=== PATIENT | female | born 1990 | race Caucasian/White ===

== ENCOUNTER 2021-01-25 11:10 | Inpatient (IN) ==
[2021-01-25] MEDS ORDERED: BUTORPHANOL TARTRATE 2 MG/ML VIAL IV PRN ×2 (11:41)
[2021-01-25] MEDS ORDERED: RINGER'S SOLUTION,LACTATED 1,000 ML IV ONE (11:41)
[2021-01-25] MEDS ORDERED: MISOPROSTOL 100 MCG TABLET VG PRN (11:41)
[2021-01-25] MEDS ORDERED: ONDANSETRON 4 MG TAB.RAPDIS PO PRN (11:41)
[2021-01-25] MEDS ORDERED: OXYTOCIN/0.9 % SODIUM CHLORIDE 30 UNITS/500 ML BAG IV ONE (11:41)
[2021-01-25] MEDS ORDERED: LIDOCAINE HCL 50 ML VIAL PERI PRN (11:41)
[2021-01-25] MEDS: RINGER'S SOLUTION,LACTATED 1,000 ML IV PRN ×2 (12:07→17:54)
[2021-01-25] MEDS ORDERED: MAGNESIUM SULFATE IN WATER 50 ML IV ONE (12:48)
[2021-01-25] MEDS: MAGNESIUM SULFATE IN WATER 1,000 ML IV SCH (13:26)
[2021-01-25] MEDS ORDERED: LABETALOL HCL 5 MG/ML VIAL IV STA ×2 (13:45→15:13)
[2021-01-25] MEDS ORDERED: ONDANSETRON HCL/PF 2 MG/ML VIAL IV PRN (16:10)
[2021-01-25] MEDS ORDERED: BUPIVACAINE HCL/0.9 % NACL/PF 250 ML EP PRN (16:10)
[2021-01-25] MEDS ORDERED: NALOXONE HCL 1 MG/1 ML SYRG IV PRN (16:10)
[2021-01-25] MEDS ORDERED: fentaNYL CITRATE/PF 50 MCG/ML AMPUL IT SCH (16:15)
--- NOTE | 2021-01-25 16:52 | HP ---
Chief Complaint - Chief Complaint Date of Service: 01/25/21 Time of Service: 16:43 Chief Complaint: Medical induction History of Present Illness: 30 year old at 36w 6d who presented to the office today for a routine obstetrical visit. She was found to have elevated BPs in the severe range and thus she was sent to L&D for induction. She denied ctx, vb or lof. Fetus active. She also denied DUMONT, visual changes or abdominal pain. Medical History (Last Reviewed 01/25/21 @ 16:45 by Belkis Stone MD) Chronic hypertension (Acute) BP severe to mild range. Asymptomatic. Scheduled for delivery after 38 weeks NST reactive YOLIS q Pre-eclampsia labs today due to two severe range BPs Anxiety Depression Concussion Spontaneous Onset Date: ~02/2020 Surgical History: Surgical History (Last Reviewed 01/25/21 @ 16:45 by Belkis Stone MD) No pertinent past surgical history Family History: Family History (Last Reviewed 01/25/21 @ 16:45 by Belkis Stone MD) Mother Breast cancer, Onset Age: 40 Father Myocardial infarction, Onset Age: 40 bypass surgery Social History: (Last Reviewed 01/25/21 @ 16:45 by Belkis Stone MD) Social History: Marital status: household members: spouse current occupational status: employed current occupation: customer service current occupational exposures/hazards: No Highest level of school completed/degree received: some college, no degree Service: No Tobacco: Smoking Status: Never smoker Alcohol: details: none since +UPT Substance Use: substance use type: does not use Dietary Habits: caffeine: No Review Of Systems (GEN) - Review of Systems Generalized/Overall Review: Present: No Symptoms Reported Neurological: Present: No Symptoms Reported Skin: Present: No Symptoms Reported Misc: All systems neg except as marked Immunizations: IMMUNIZATION HX Immunizations Up to Date Yes Allergies/Adverse Reactions: Allergies Allergy/AdvReac Type Severity Reaction Status Date / Time No Known Allergies Allergy Verified 01/25/21 11:47 Home Medications: HOME MEDICATIONS prenat.vits,tk,elv-[id number]-pxgwx 1 tab PO DAILY 02/20/20 [Last Taken Unknown] sertraline 100 mg tablet 100 mg PO DAILY #30 tab 07/22/20 [Last Taken 01/24/21] Exam - Exam Vital Signs: Vital Signs - Last Taken Temp 37.2 C 01/25/21 12:00 Pulse 96 01/25/21 14:15 Resp 16 01/25/21 12:00 BP 161/103 H 01/25/21 13:53 Pulse Ox 97 01/25/21 12:00 Constitutional: Present: Alert, Oriented x3, Cooperative ENT Exam: Present: hearing grossly normal Eye Exam: bilateral eye: normal inspection Neck: Present: normal inspection Back Exam: Present: normal inspection Respiratory: Present: lungs clear, normal breath sounds Cardiovascular/Chest: Present: regular rate, rhythm Abdomen: Present: soft, nontender, nondistended /Rectal: Present: Other - 4/60/-2 AROM for clear fluid Extremity: Present: non-tender, no pedal edema Skin Exam: Present: normal color, warm/dry, no cyanosis Neurologic: Present: alert, normal mood/affect, oriented x 3 Appearance: Present: appropriate appearance, appropriate insight, neat, no memory impairment Eye contact: Present: cooperative, good eye contact, normal speech Thoughts: Present: normal thought pattern Assessment/Plan - Narrative Narrative: 30 year old at 36w 6d 1. Proceed with IOL due to superimposed pre-eclampsia with severe features. The patient is asymptomatic and her pre-eclampsia labs are normal. Magnesium was started for seizure prophylaxis. Two doses of labetalol have been given: 20 mg followed by 40 mg IV. 2. GBS negative: prophylaxis not indicated 3. Anxiety with depression: stable on sertraline - Assessment/Plan (1) 36 weeks gestation of Problem: Acute (2) Depression with anxiety Problem: Acute (3) Normal Pap smear Problem: Acute (4) Pre-eclampsia superimposed on chronic hypertension Problem: Acute
--- NOTE | 2021-01-25 17:25 | ANES ---
Anesthesia Pre Procedure Eval Vitals/Labs: Last Vital Signs Temp 37.2 C 01/25/21 12:00 Pulse 96 01/25/21 14:15 Resp 16 01/25/21 12:00 BP 161/103 H 01/25/21 13:53 Pulse Ox 97 01/25/21 12:00 HOME MEDICATIONS prenat.vits,tk,xij-uhll-fszdi 1 tab PO DAILY 02/20/20 [Last Taken Unknown] sertraline 100 mg tablet 100 mg PO DAILY #30 tab 07/22/20 [Last Taken 01/24/21] Allergies/Adverse Reactions: Allergies Allergy/AdvReac Type Severity Reaction Status Date / Time No Known Allergies Allergy Verified 01/25/21 11:47 - Planned Procedure Planned Procedure: MEDICAL INDUCTION Medication List Reviewed:: Yes Allergies Verified: Yes Medical History (Last Reviewed 01/25/21 @ 17:24 by Jose R Mosher CRNA) Chronic hypertension (Acute) BP severe to mild range. Asymptomatic. Scheduled for delivery after 38 weeks NST reactive YOLIS q Pre-eclampsia labs today due to two severe range BPs Anxiety Depression Concussion Spontaneous Onset Date: ~02/2020 Surgical History (Last Reviewed 01/25/21 @ 17:24 by Jose R Mosher CRNA) No pertinent past surgical history Family History (Last Reviewed 01/25/21 @ 17:24 by Jose R Mosher CRNA) Mother Breast cancer, Onset Age: 40 Father Myocardial infarction, Onset Age: 40 bypass surgery - Family Anesthesia History Family History:: no untoward family reactions to anesthesia - Airway/Neck/Teeth Within Normal Limits:: Yes Teeth Condition: intact Neck Exam: full range of motion Mallampatti Score: 2 Thyromental (T-M) distance: > 6 cm Mandibulo Hyoid distance: > 3 cm - Respiratory Respiratory Physical: lungs clear Smoking Status: Never smoker Sleep Apnea currently treated: No Sleep Apnea by current assessment: No - Cardiovascular Cardiac History: hypertension Tolerate Activity: Good Heart Sounds: S1 & S2, Regular - Gastrointestinal NPO since: 1200 - Anesthesia Assessment and Plan ASA Class: PS, II, E Anesthesia Type Plan: Epidural Planned difficult intubation/equipment available: No
--- NOTE | 2021-01-25 17:25 | ANES ---
Post Anesthesia Assessment - Vital Signs Vitals: Last Vital Signs Temp 37.2 C 01/25/21 12:00 Pulse 96 01/25/21 14:15 Resp 16 01/25/21 12:00 BP 161/103 H 01/25/21 13:53 Pulse Ox 97 01/25/21 12:00 Airway Patency: Normal - Mental Status Level Of Consciousness: Awake - Pain Level Pain Score: 1 - N/V Assessment Nausea/Vomiting Presence: None Dehydration:: No
--- NOTE | 2021-01-25 17:25 | ANES ---
Post Anesthesia Discharge - Transfer of Care Transfer of Care handoff given to nurse: Yes - Anesthesia Post Op Note Anesthesia Post Op Note: Care transferred to OB RN
--- NOTE | 2021-01-25 17:27 | ANES ---
Anesthesia Procedure Note Procedure Note: ANESTHESIA PROCEDURE NOTE Date of Procedure: 01/25/2021 Time of procedure: 1650. Performed by: Michele Mosher CRNA Manager Personal: None. Preprocedure diagnosis: Active labor. Post procedure diagnosis: Same. Procedure: Insertion of labor epidural. Indications: The patient is a 30-year-old prima para female in active labor requesting labor epidural for pain management. Findings: See below. Details of the procedure: The patient was placed in a sitting position. Back was prepped with DuraPrep. Patient was then draped in a sterile fashion. Lidocaine 1% was infiltrated to the skin and subcutaneous tissues at the level of the L3 4 interspace. The epidural space was identified using a 18-gauge Tuohy needle with [id number] technique. 20 mcg fentanyl was given intrathecally using a 27 ga. spinal needle. Epidural catheter was inserted without difficulty. Negative test dose was elicited using 5 mL of 1.5% preservative-free lidocaine plus epinephrine 1 200,000. The epidural catheter was then taped and secured in place. EBL: Minimal. Fluids: N/A. Specimen: N/A. Post procedure condition: The patient tolerated the procedure well. No complications were noted. Thank you for this consultation. Bolton CRNA
[2021-01-26] MEDS: RINGER'S SOLUTION,LACTATED 1,000 ML IV PRN (01:55)
[2021-01-26] MEDS ORDERED: MISOPROSTOL 200 MCG TABLET RC ONE (02:20)
--- NOTE | 2021-01-26 02:27 | OR ---
Operative Report - Dictated Report Narrative: Date of delivery: 01/26/2021 Time of delivery: 201 Gender: male weight: 3509 grams APGARS: 8 Procedure: Description of the procedure: The patient is a 30 year old now at 37w 0d who underwent a medical induction of labor due to SIP. She progressed to complete dilation. She delivered a viable male in direct OA presentation. A vacuum delivery was attempted due to prolonged second stage and maternal exhaustion but suction was inadequate due to hair on the baby and thus it was abandoned after two pop offs. Cord clamping was delayed for 60 seconds due to vigorous . A second degree perineal laceration was repaired with 3-0 rapide. The placenta was delivered by expression, intact, and without difficulty. Cytotec 1000 mcg was placed rectally due to uterine atony. EBL: 300 mL Complications: none Specimens: cord blood, placenta
[2021-01-26] MEDS ORDERED: BISACODYL 10 MG SUPP.RECT RC PRN (03:52)
[2021-01-26] MEDS ORDERED: GLYCERIN/WITCH HAZEL LEAF 40 APPL BOX TP PRN (03:52)
[2021-01-26] MEDS ORDERED: RINGER'S SOLUTION,LACTATED 1,000 ML IV PRN (03:52)
[2021-01-26] MEDS ORDERED: SENNOSIDES 8.6 MG TABLET PO PRN (03:52)
[2021-01-26] MEDS ORDERED: diphenhydrAMINE HCL 25 MG CAPSULE PO PRN (03:52)
[2021-01-26] MEDS ORDERED: HYDROcodone/ACETAMINOPHEN 1 EACH TABLET PO PRN ×2 (03:52)
[2021-01-26] MEDS ORDERED: OXYTOCIN/0.9 % SODIUM CHLORIDE 30 UNITS/500 ML BAG IV ONE (03:52)
[2021-01-26] MEDS ORDERED: HYDROCORTISONE 30 APPL TUBE TP PRN (03:52)
[2021-01-26] MEDS ORDERED: BENZOCAINE/MENTHOL 81 SPRAY CAN TP PRN (03:52)
[2021-01-26] MEDS ORDERED: LABETALOL HCL 5 MG/ML VIAL IV ONE (04:09)
[2021-01-26] MEDS: IBUPROFEN 800 MG TABLET PO PRN ×3 (06:11→19:41)
[2021-01-26] MEDS: PRENATAL VITS96/IRON FUM/FOLIC 1 TAB TABLET PO SCH (08:04)
[2021-01-26] MEDS: DOCUSATE SODIUM 100 MG CAPSULE PO SCH ×2 (08:04→20:22)
[2021-01-26] MEDS: SERTRALINE HCL 100 MG TABLET PO SCH (08:04)
[2021-01-26] MEDS: MAGNESIUM SULFATE IN WATER 1,000 ML IV SCH (09:30)
[2021-01-26] MEDS: LABETALOL HCL 100 MG TABLET PO SCH ×2 (10:40→20:22)
[2021-01-27] MEDS ORDERED: NIFEdipine 30 MG TAB.SR.24H PO SCH (09:00)
[2021-01-27] MEDS: DOCUSATE SODIUM 100 MG CAPSULE PO SCH ×2 (09:34→20:06)
[2021-01-27] MEDS: MAGNESIUM SULFATE IN WATER 1,000 ML IV SCH (09:34)
--- NOTE | 2021-01-27 12:22 | PN ---
Progess Note - Interim Date: 01/26/21 Time: 10:00 Narrative: 01/27/21 12:17 Late entry for 01/26/2021 Magnesium to be continued for 24 hours after delivery or until 0200 The patient received an additional dose of labetalol 20 mg IV once at 0400 Then the patient had two additional elevated BPs in the severe range and the patient was started on labetalol 100mg PO BID IVF were decreased from 125 mL/hour to 50 mL per hour Carrion in place 4 hours post magnesium per protocol
[2021-01-27] MEDS: SERTRALINE HCL 100 MG TABLET PO SCH (12:24)
[2021-01-27] MEDS: PRENATAL VITS96/IRON FUM/FOLIC 1 TAB TABLET PO SCH (12:24)
--- NOTE | 2021-01-27 12:28 | PN ---
Subjective - Date and Time Seen Date: 01/27/21 Time: 12:23 Subjective Narrative: Patient without complaints Objective Objective Narrative: See vital signs - Review of Systems Generalized/Overall Review: Reports: No Symptoms Reported Misc: All systems neg except as marked - Vitals Vitals: Last Vital Signs Temp 36.7 C 01/27/21 08:14 Pulse 98 01/27/21 09:35 Resp 18 01/27/21 08:14 BP 179/83 H 01/27/21 09:35 Pulse Ox 98 01/27/21 06:00 - Exam Constitutional: Present: Alert, Oriented x3, Cooperative ENT Exam: Present: hearing grossly normal Respiratory: Present: normal breath sounds, no respiratory distress - fundus is firm Cardiovascular/Chest: Present: regular rate, rhythm Abdomen: Present: soft, nontender, nondistended Extremity: Present: non-tender, no calf tenderness Skin Exam: Present: normal color, warm/dry, no cyanosis Neurologic: Present: alert, normal mood/affect, oriented x 3 Appearance: Present: appropriate appearance, appropriate insight, neat, no memory impairment Eye contact: Present: cooperative, good eye contact, normal speech Thoughts: Present: normal thought pattern Cauti Physician Documentation - Urinary Catheter Management Urethral (Carrion) Urethral Indwelling: No Date of Insertion: 01/25/21 Time of Insertion: 13:04 Date of Removal: 01/27/21 Time of Removal: 06:00 Assessment/Plan Plan Narrative: PPD 1 s/p VAVD Doing well Patient switched from PO labetalol to procardia 60mg XL to increase compliance with once daily dosing The patient just had a severe range BP so will increase procardia to 90 mg XL so will give an additional dose of 30 mg XL. Discharge tomorrow if BP is controlled - Problems/Diagnosis (1) Depression with anxiety Problem: Acute (2) Normal Pap smear Problem: Acute (3) Pre-eclampsia superimposed on chronic hypertension Problem: Acute (4) 37 weeks gestation of Problem: Acute
[2021-01-27] MEDS ORDERED: NIFEdipine 30 MG TAB.SR.24H PO ONE (12:45)
[2021-01-27] MEDS: IBUPROFEN 800 MG TABLET PO PRN (12:45)
--- NOTE | 2021-01-28 08:13 | PN ---
Subjective - Date and Time Seen Date: 01/28/21 Time: 08:12 Subjective Narrative: Patient without complaints Objective Objective Narrative: See vital signs - Review of Systems Generalized/Overall Review: Reports: No Symptoms Reported Genitourinary Symptoms: Reports: Other - vaginal bleeding Misc: All systems neg except as marked - Vitals Vitals: Last Vital Signs Temp 36.3 C 01/28/21 06:59 Pulse 94 01/28/21 06:59 Resp 16 01/28/21 06:59 BP 142/83 H 01/28/21 06:59 Pulse Ox 98 01/28/21 06:59 - Exam Constitutional: Present: Alert, Oriented x3, Cooperative, No distress ENT Exam: Present: hearing grossly normal Neck: Present: normal inspection Abdomen: Present: soft, nontender, nondistended - fundus is firm Extremity: Present: non-tender, no calf tenderness Skin Exam: Present: normal color, warm/dry, no cyanosis Neurologic: Present: alert, normal mood/affect, oriented x 3 Appearance: Present: appropriate appearance, appropriate insight, neat, no memory impairment Eye contact: Present: cooperative, good eye contact, normal speech Thoughts: Present: normal thought pattern Cauti Physician Documentation - Urinary Catheter Management Urethral (Carrion) Urethral Indwelling: No Date of Insertion: 01/25/21 Time of Insertion: 13:04 Date of Removal: 01/27/21 Time of Removal: 06:00 Assessment/Plan Plan Narrative: PPD 2 s/p VAVD Doing well Discharge today - Problems/Diagnosis (1) Depression with anxiety Problem: Acute (2) Normal Pap smear Problem: Acute (3) Pre-eclampsia superimposed on chronic hypertension Problem: Acute (4) 37 weeks gestation of Problem: Acute
--- NOTE | 2021-01-28 08:18 | DS ---
OB Discharge Summary (1) Depression with anxiety Status: Acute (2) Normal Pap smear Status: Acute (3) Pre-eclampsia superimposed on chronic hypertension Status: Acute (4) 37 weeks gestation of Status: Acute Delivery Date: 01/26/21 Delivery Time: 02:02 :: 2 Para:: 1 Gestational weeks:: 37 Gestational days:: 0 Intrapartum Procedures: Anesthesia - Epidural, Vacuum-Assisted Procedures: None /OP Complications: Preeclampsia/GHTN Discharge Diagnosis: Term -Delivered, Preeclampsia mild/severe - Discharge Information Date of Discharge: 01/28/21 Hospital Course: The patient was sent from the office for a medical IOL due to SIP. She was on magnesium for seizure prophylaxis and also received several doses of both IV and PO labetalol. Delivery and course were uncomplicated. Patient is discharged home on PO procardia. Discharge Location: Home Disposition: Home self-care Activity on Discharge:: Activity as tolerated, Pelvic Rest Discharge Diet: General/regular food Prescriptions (Any new or edited meds): NIFEdipine [Procardia Xl] 90 mg PO DAILY #30 tab.sr.24h Transmission Status: Received by [facility] #[id number] Complete Home Medications List: Complete Home Medication List: prenat.vits,tk,bvn-woor-bqnum 1 tab PO DAILY 02/20/20 sertraline 100 mg tablet 100 mg PO DAILY #30 tab 07/22/20 NIFEdipine [Procardia Xl] 90 mg PO DAILY #30 tab.sr.24h 01/27/21 - Plan Discharge to:: Home Comment:: Routine Discharge Instructions Follow up in office in:: 1 week - BP check next please and then 4 weeks PP for PP visit - Information Weight (Grams): 3,509 Sex: Male Score 1 min: 8 Score 5 min: 8 Other Complications: LGA, respiratory distress, hypoglycemia of . Severe preeclampsia, vacuum assist attempted x 2 popoffs
[2021-01-28] MEDS ORDERED: NIFEdipine 30 MG TAB.SR.24H PO SCH (09:00)
[2021-01-28] MEDS: DOCUSATE SODIUM 100 MG CAPSULE PO SCH ×2 (09:04→20:38)
[2021-01-28] MEDS: PRENATAL VITS96/IRON FUM/FOLIC 1 TAB TABLET PO SCH (09:04)
[2021-01-28] MEDS: SERTRALINE HCL 100 MG TABLET PO SCH (09:04)
[2021-01-28] MEDS ORDERED: NIFEdipine 30 MG TAB.SR.24H PO ONE ×2 (20:23→20:30)
[2021-01-28] MEDS: IBUPROFEN 800 MG TABLET PO PRN (20:52)
[2021-01-28] MEDS ORDERED: LABETALOL HCL 100 MG TABLET PO SCH (21:00)
--- NOTE | 2021-01-29 04:18 | PN ---
Progess Note - Interim Date: 01/28/21 Time: 20:00 Narrative: 01/29/21 04:16 Late entry for 01/28/2021 Received a phone call from RN regarding pharmacy recommendation to add on labetalol. Labetalol 100 mg PO BID added on to procardia XL. The maximum dose of procardia for chronic hypertensives patients per ACOG guidelines is 120mg. Switch to 120 mg XL to improve compliance. Discontinue labetalol.
[2021-01-29] MEDS ORDERED: NIFEdipine 30 MG TAB.SR.24H PO SCH ×4 (09:00)
[2021-01-29] MEDS: DOCUSATE SODIUM 100 MG CAPSULE PO SCH ×2 (10:23→21:56)
--- NOTE | 2021-01-29 11:35 | PN ---
Subjective - Date and Time Seen Date: 01/29/21 Time: 11:32 Subjective Narrative: Patient without complaints Objective Objective Narrative: See vital signs - Review of Systems Generalized/Overall Review: Reports: No Symptoms Reported - Vitals Vitals: Last Vital Signs Temp 36.4 C 01/29/21 00:00 Pulse 103 H 01/29/21 10:24 Resp 17 01/29/21 00:00 BP 154/90 H 01/29/21 10:24 Pulse Ox 96 01/29/21 00:00 - Exam Constitutional: Present: Alert, Oriented x3, Cooperative, No distress ENT Exam: Present: hearing grossly normal Neck: Present: normal inspection Abdomen: Present: soft, nontender, nondistended - fundus is firm Extremity: Present: non-tender, no calf tenderness Skin Exam: Present: normal color, warm/dry, no cyanosis Neurologic: Present: alert, normal mood/affect, oriented x 3 Appearance: Present: appropriate appearance, appropriate insight, neat, no memory impairment Eye contact: Present: cooperative, good eye contact, normal speech Thoughts: Present: normal thought pattern Cauti Physician Documentation - Urinary Catheter Management Urethral (Carrion) Urethral Indwelling: No Date of Insertion: 01/25/21 Time of Insertion: 13:04 Date of Removal: 01/27/21 Time of Removal: 06:00 Assessment/Plan Plan Narrative: PPD 3 s/p VAVD Doing well CHTN with SIP: procardia 90 mg XL PO and labetalol 100 mg PO BID BP check as scheduled or sooner for any other concerns - Problems/Diagnosis (1) Depression with anxiety Problem: Acute (2) Normal Pap smear Problem: Acute (3) Pre-eclampsia superimposed on chronic hypertension Problem: Acute (4) 37 weeks gestation of Problem: Acute
[2021-01-29] MEDS ORDERED: LABETALOL HCL 100 MG TABLET ONE (12:52)
[2021-01-29] MEDS: PRENATAL VITS96/IRON FUM/FOLIC 1 TAB TABLET PO SCH (13:00)
[2021-01-29] MEDS: SERTRALINE HCL 100 MG TABLET PO SCH (13:00)
[2021-01-29] MEDS: LABETALOL HCL 100 MG TABLET PO SCH (16:24)
[2021-01-29] MEDS: IBUPROFEN 800 MG TABLET PO PRN (20:08)
[2021-01-29] MEDS ORDERED: LABETALOL HCL 200 MG TABLET PO ONE (21:00)
[2021-01-29] MEDS ORDERED: LABETALOL HCL 100 MG TABLET PO SCH (21:00)
[2021-01-30] MEDS: MAGNESIUM SULFATE IN WATER 1,000 ML IV SCH (08:37)
[2021-01-30] MEDS: DOCUSATE SODIUM 100 MG CAPSULE PO SCH (08:59)
[2021-01-30] MEDS ORDERED: NIFEdipine 30 MG TAB.SR.24H PO SCH (09:00)
[2021-01-30] MEDS: PRENATAL VITS96/IRON FUM/FOLIC 1 TAB TABLET PO SCH (09:00)
[2021-01-30] MEDS: SERTRALINE HCL 100 MG TABLET PO SCH (09:00)
[2021-01-30] MEDS: LABETALOL HCL 100 MG TABLET PO SCH ×2 (09:00→14:21)
--- NOTE | 2021-01-30 11:08 | PN ---
Subjective - Date and Time Seen Date: 01/30/21 Time: 11:06 Subjective Narrative: Patient without complaints Objective Objective Narrative: See vital signs - Review of Systems Generalized/Overall Review: Reports: No Symptoms Reported Misc: All systems neg except as marked - Vitals Vitals: Last Vital Signs Temp 36.9 C 01/30/21 08:15 Pulse 104 H 01/30/21 09:00 Resp 16 01/30/21 08:15 BP 129/70 01/30/21 10:37 Pulse Ox 97 01/30/21 08:15 - Exam Constitutional: Present: Alert, Oriented x3, Cooperative, No distress ENT Exam: Present: hearing grossly normal Neck: Present: normal inspection Abdomen: Present: soft, nontender, nondistended - fundus is firm Extremity: Present: non-tender, no calf tenderness Skin Exam: Present: normal color, warm/dry, no cyanosis Neurologic: Present: alert, normal mood/affect, oriented x 3 Appearance: Present: appropriate appearance, appropriate insight, neat, no memory impairment Eye contact: Present: cooperative, good eye contact, normal speech Thoughts: Present: normal thought pattern Cauti Physician Documentation - Urinary Catheter Management Urethral (Carrion) Urethral Indwelling: No Date of Insertion: 01/25/21 Time of Insertion: 13:04 Date of Removal: 01/27/21 Time of Removal: 06:00 Assessment/Plan Plan Narrative: PPD 4 s/p VAVD Doing well SIP: on procardia 90mg XL PO daily, added labetalol 200mg PO TID due to severe range BPs. BPs normal to mild range today Discharge today - Problems/Diagnosis (1) Depression with anxiety Problem: Acute (2) Normal Pap smear Problem: Acute (3) Pre-eclampsia superimposed on chronic hypertension Problem: Acute (4) 37 weeks gestation of Problem: Acute
--- NOTE | 2021-01-30 11:17 | DS ---
OB Discharge Summary (1) Depression with anxiety Status: Acute (2) Normal Pap smear Status: Acute (3) Pre-eclampsia superimposed on chronic hypertension Status: Acute (4) 37 weeks gestation of Status: Acute Delivery Date: 01/26/21 Delivery Time: 02:02 :: 2 Para:: 1 Gestational weeks:: 37 Gestational days:: 0 Intrapartum Procedures: Anesthesia - Epidural, Vacuum-Assisted Procedures: None /OP Complications: Preeclampsia/GHTN Discharge Diagnosis: Term -Delivered, Preeclampsia mild/severe - Discharge Information Date of Discharge: 01/30/21 Hospital Course: The patient was sent from the office for a medical IOL due to SIP. She was on magnesium for seizure prophylaxis and also received several doses of both IV and PO labetalol. Delivery and course were complicated by severe hypertension requiring several changes in antihypertensive therapy. Patient is discharged home on PO procardia 90 mg PO XL as well as labetalol 200mg PO TID. She is scheduled for a BP check on Discharge Location: Home Disposition: Home self-care Condition: Good Activity on Discharge:: Activity as tolerated, Pelvic Rest Discharge Diet: General/regular food Additional Patient Instructions (free text): Anel will follow up with Dr. Stone on , 02/04/21 at 10:00 AM for a blood pressure check. Giorgio's follow up appointment is on 02/01/21 at 10:30 AM with . Rest when your baby rests. If you have any DUMONT that doesn't go away after Tylenol, visual disturbances, Sever heart burn, if your legs are more swollen notify your doctor. Nurse your baby every 2-3 hours and if baby not nursing well pump after attempt. Always place your baby on his back in his own bassinet or crib. No loose blankets, stuffed animals, pillows or bumper pads. Take your Procardia XL as prescribed. Thank you for choosing [facility] your special [facility]. If you have any questions, or concerns please call the [facility] [phone], [facility] [phone] or [facility] [phone]. Prescriptions (Any new or edited meds): NIFEdipine [Procardia Xl] 90 mg PO DAILY #30 tab.sr.24h Transmission Status: Received by [facility] #[id number] Labetalol HCl [Trandate] 100 mg PO BID #60 tab Transmission Status: Received by [facility] #[id number] Labetalol HCl [Trandate] 200 mg PO TID #90 tab Transmission Status: Pending to [facility] #[id number] Complete Home Medications List: Complete Home Medication List: prenat.vits,tk,qgk-[id number]-wprkf 1 tab PO DAILY 02/20/20 sertraline 100 mg tablet 100 mg PO DAILY #30 tab 07/22/20 NIFEdipine [Procardia Xl] 90 mg PO DAILY #30 tab.sr.24h 01/27/21 Labetalol HCl [Trandate] 100 mg PO BID #60 tab 01/29/21 Labetalol HCl [Trandate] 200 mg PO TID #90 tab 01/30/21 - Plan Discharge to:: Home Comment:: Routine Discharge Instructions Follow up in office in:: 1 week - for a BP check - [place] Information Weight (Grams): 3,509 Infant Sex: Male Score 1 min: 8 Score 5 min: 8 Other Complications: LGA, respiratory distress, hypoglycemia of . Severe preeclampsia, vacuum assist attempted x 2 popoffs
[2021-01-30 14:21] VITALS: BP 134/75
== END 2021-01-30 19:00 | disposition home or self-care (01) | DRG 807 ==
LOC: OB 11:10
PROVIDERS: ADMIT Obstetrics & Gynecology; ATTEND Obstetrics & Gynecology